=== PATIENT | female | born 1980 | race Two or more races ===

== ENCOUNTER 2024-04-23 11:43 | Emergency (ER) | payer OTHER ==
[~2024-04-23] VITALS: Ht 170.2 cm; Wt 51.3 kg
[2024-04-23] MEDS ORDERED: DEXAMETHASONE SODIUM PHOSPHATE 4 MG/ML VIAL IM STA (14:22)
[2024-04-23] MEDS ORDERED: ORPHENADRINE CITRATE 30 MG/ML AMPUL IM STA (14:23)
[2024-04-23] MEDS ORDERED: KETOROLAC TROMETHAMINE 60 MG VIAL IM STA (14:24)
[2024-04-23] MEDS ORDERED: DEXAMETHASONE SODIUM PHOSPHATE 4 MG/ML VIAL ONE (14:49)
[2024-04-23] MEDS ORDERED: ORPHENADRINE CITRATE 30 MG/ML AMPUL ONE (14:49)
[2024-04-23] MEDS ORDERED: KETOROLAC TROMETHAMINE 30 MG VIAL ONE (14:49)
[2024-04-23] MEDS ORDERED: AMOX1TAB5 PO (15:00)
[2024-04-23] MEDS ORDERED: NORFLEX100MG PO (16:14)
== END 2024-04-23 18:39 | disposition home or self-care (01) ==
LOC: ER 11:45
DX: L08.9 Local infection of the skin and subcutaneous tissue, unspecified (principal)